=== PATIENT | female | born 1965 | race African-American/Black ===

== ENCOUNTER 2017-01-22 02:47 | Emergency (ER) | payer OTHER ==
[~2017-01-22] VITALS: Ht 175.3 cm; Wt 78.0 kg
[~2017-01-22 02:47] MED LIST: AMBIEN5 MG ORAL; AMBIEN5 MG PO; BACTRIM DS TAB1 EAC1 ORAL; BACTRIM-DS1 EA PO; IBUPROFEN600 MG ORAL
[2017-01-22] MEDS ORDERED: AMLODIPINE BESYL5 MG ORAL (02:58)
[2017-01-22] MEDS ORDERED: Ketorolac 30mg Inj IM ONE (03:15)
[2017-01-22] MEDS ORDERED: IBUPROFEN600 MG ORAL (03:24)
[2017-01-22 03:31] VITALS: BP_SYST 125; BP_SYST 128; BP_DIAS 76; BP_DIAS 78
--- NOTE | 2017-01-22 05:34 | Emergency Room Report ---
History of Present Illness General Chief Complaint: Pain Source: Patient Present Illness HPI 51-year-old female presents to ED complaining of right shoulder pain. States pain started last night around 10 PM. Started while a rest. Denies trauma. Took Tylenol #3 without relief. States pain is throbbing, 10 out of 10, worse with movement. No other aggravating relieving factors. Denies chest pain or shortness of breath. Patient states he takes OxyContin for her back pain. No other aggravating relieving factors. Denies any other associated symptoms Allergies: Coded Allergies: No Known Allergies (Unverified , 08/16/12) Patient History Past Medical History: HTN, asthma Past Surgical History: none Pertinent Family History: none Social History: Denies: alcohol use, drug use, smoking Last Menstrual Period: September 2016 Now: No : 10 Para: 4 Immunizations: UTD Reviewed Nursing Documentation: PMH: Agreed, PSxH: Agreed Nursing Documentation-PMH Past Medical History: No History, Except For Hx Hypertension: Yes Hx Asthma: Yes Review of Systems All Other Systems: negative except mentioned in HPI Physical Exam Vital Signs Date Time Temp Pulse Resp B/P Pulse Ox O2 Delivery O2 Flow Rate FiO2 01/22/17 02:50 98.1 78 18 128/78 97 Room Air Sp02 EP Interpretation: reviewed, normal General Appearance: no apparent distress, alert, GCS 15, non-toxic Head: normocephalic, atraumatic Eyes: bilateral eye PERRL, bilateral eye normal inspection ENT: hearing grossly normal, normal pharynx, no angioedema, normal voice Neck: full range of motion, supple/symm/no masses Respiratory: chest non-tender, lungs clear, normal breath sounds, speaking full sentences Cardiovascular #1: regular rate, rhythm, no edema Cardiovascular #2: 2+ carotid (R), 2+ carotid (L), 2+ radial (R), 2+ radial (L) , 2+ dorsalis pedis (R), 2+ dorsalis pedis (L) Gastrointestinal: normal bowel sounds, non tender, soft, non-distended, no guarding, no rebound Rectal: deferred Genitourinary: normal inspection, no CVA tenderness Musculoskeletal: back normal, gait/station normal, normal range of motion, tender - TTP R shoulder - full ROM Neurologic: alert, oriented x3, responsive, motor strength/tone normal, sensory intact, speech normal Psychiatric: judgement/insight normal, memory normal, mood/affect normal, no suicidal/homicidal ideation Reflexes: 3+ bicep (R), 3+ bicep (L), 3+ tricep (R), 3+ tricep (L), 3+ knee (R) , 3+ knee (L) Skin: normal color, no rash, warm/dry, well hydrated Lymphatic: no adenopathy Procedures Splinting Splinting : Consent: Verbal Pre-Made Type: shoulder sling Pre-Proc Neuro Vasc Exam: normal Post-Proc Neuro Vasc Exam: normal Patient Tolerated: Well Complications: None Medical Decision Making Diagnostic Impression: Primary Impression: Right shoulder strain Qualified Codes: S46.911A - Strain of unspecified muscle, fascia and tendon at shoulder and upper arm level, right arm, initial encounter Additional Impression: Opioid dependence Qualified Codes: F11.20 - Opioid dependence, uncomplicated ER Course Hospital Course 51-year-old female presents to ED complaining of R shoulder pain no trauma Differential diagnoses include: Fracture, dislocation, sprain, contusion, bursitis Clinical course Patient placed on stretcher. After initial history, physical exam reveals an middle-aged female in no acute distress. There is some tenderness to the tricep and deltoid of L shoulder. No bony tenderness. Full range of motion noted. Remainder of exam negative. Clinical findings consistent with tendinitis , shoulder strain. Reassurance given to patient. I reviewed CURES and patient has oxycontin prescriptiosn filled on a monthly basis Patient given Toradol in ED Diagnosis - R shoulder strain, opioid dependence stable and discharged to home with prescription for Motrin. Followup with PMD. Return to ED if symptoms recur or worsen Last Vital Signs Date Time Temp Pulse Resp B/P Pulse Ox O2 Delivery O2 Flow Rate FiO2 01/22/17 03:31 98.1 76 18 125/76 98 Room Air Status: improved Disposition: HOME, SELF-CARE Condition: Stable Scripts Ibuprofen* (MOTRIN*) 600 Mg Tablet 600 MG ORAL Q8H Y for For Pain, #30 TAB 0 Refills Prov: JACOBO COLE M.D. 01/22/17 Patient Instructions: Shoulder Sprain JACOBO COLE M.D. Jan 22, 2017 05:34
== END 2017-01-22 03:32 | disposition home or self-care (01) ==
LOC: EMR 03:10
DX: S46.911A Strain of unspecified muscle, fascia and tendon at shoulder and upper arm level, right arm, initial encounter (principal); F11.20 Opioid dependence, uncomplicated; I10 Essential (primary) hypertension; J45.909 Unspecified asthma, uncomplicated; X58.XXXA Exposure to other specified factors, initial encounter; Y92.9 Unspecified place or not applicable; Y99.8 Other external cause status
CPT/HCPCS: 96372; 99283; J1885

== ENCOUNTER 2018-04-01 10:53 | Emergency (ER) | payer OTHER ==
[~2018-04-01] VITALS: Ht 175.3 cm; Wt 78.0 kg
[~2018-04-01 10:53] MED LIST changes: +ALPRAZOLAM0.25 MG ORAL; +AMLODIPINE BESYL5 MG ORAL
[2018-04-01] MEDS ORDERED: Aspirin Baby 81mg ORAL ONE (11:30)
[2018-04-01 12:00] VITALS: BP 149/68
--- NOTE | 2018-04-01 12:04 | Diagnostic Imaging Report ---
Indication: Chest pain Technique: One view of the chest Comparison: 05/19/2017 Findings: Lungs and pleural spaces are clear. Heart size is upper limits of normal. There is no significant interim change Impression: No acute process
[2018-04-01 12:05] LABS: EOSINOPHILS % (AUTO) 3.7 % (0.0-3.0); HEMATOCRIT 42.2 % (37.0-47.0); HEMOGLOBIN 14.3 G/DL (12.0-16.0); MEAN CORPUSCULAR VOLUME 88 FL (80-99); NEUTROPHILS % (AUTO) 40.3 % (45.0-75.0); PLATELET COUNT 312 K/UL (150-450); RED CELL DISTRIBUTION WIDTH 11.5 % (11.6-14.8); WHITE BLOOD COUNT 4.1 K/UL (4.8-10.8)
[2018-04-01 12:10] LABS: ANION GAP 7 mmol/L (5-15); BLOOD UREA NITROGEN 12 mg/dL (7-18); CALCIUM 9.5 MG/DL (8.5-10.1); CARBON DIOXIDE 32 MMOL/L (21-32); CHLORIDE 105 MMOL/L (98-107); CREATININE 0.8 MG/DL (0.55-1.30); POTASSIUM 3.7 MMOL/L (3.5-5.1); SODIUM 144 MMOL/L (136-145)
[2018-04-01 12:25] LABS: ALANINE AMINOTRANSFERASE 31 U/L (12-78); ALBUMIN 4.2 G/DL (3.4-5.0); ALBUMIN/GLOBULIN RATIO 1.1 (1.0-2.7); ALKALINE PHOSPHATASE 102 U/L (46-116); ASPARTATE AMINO TRANSFERASE 18 U/L (15-37); BILIRUBIN,TOTAL 0.2 MG/DL (0.2-1.0); CKMB 0.7 NG/ML (0.0-3.6); CREATINE KINASE 135 U/L (26-308)
[2018-04-01 14:13] LABS: APPEARANCE,URINE CLEAR; BILIRUBIN, URINE NEGATIVE (NEGATIVE); GLUCOSE, URINE (UA) NEGATIVE (NEGATIVE); KETONES,URINE NEGATIVE (NEGATIVE); LEUKOCYTE ESTERASE ,URINE 1+ (NEGATIVE); NITRITE,URINE NEGATIVE (NEGATIVE); PH,URINE 6.5 (4.5-8.0); PROTEIN,URINE NEGATIVE (NEGATIVE); UROBILINOGEN,URINE NORMAL MG/DL (0.0-1.0)
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
[2018-04-01 14:28] LABS: COLOR,URINE YELLOW
[2018-04-01] MEDS ORDERED: Morphine Sulfate 4mg/ml Inj IVP ONE (14:30)
[2018-04-01 15:08] VITALS: BP 133/76
--- NOTE | 2018-04-02 16:47 | Cardiology Report ---
APPROVED REPORT EKG Measurement Heart [id number] MD [id number] Normal sinus rhythm Normal ECG
== END 2018-04-01 15:09 | disposition short-term general hospital (02) ==
LOC: EMR 12:31
DX: I24.9 Acute ischemic heart disease, unspecified (principal); I10 Essential (primary) hypertension; J45.909 Unspecified asthma, uncomplicated
CPT/HCPCS: 36415; 71045; 80053; 80307; 81003; 82550; 82553; 83690; 83880; 84484; 85025; 93005; 96374; 99284; J2270

== ENCOUNTER 2019-07-15 09:39 | Emergency (ER) | payer SELFPAY ==
[~2019-07-15] VITALS: Ht 177.8 cm; Wt 82.6 kg
[2019-07-15 09:54] VITALS: BP 110/69
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
[2019-07-15] MEDS ORDERED: NAPROXEN250 MG ORAL (10:05)
[2019-07-15] MEDS ORDERED: LIDODERM700 M1 TOPIC (10:05)
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
[2019-07-15] MEDS ORDERED: Naproxen 500mg tab ORAL ONE (10:15)
[2019-07-15] MEDS ORDERED: oxyCODONE HCL/Acetaminophen 5/325mg ORAL ONE (10:15)
[2019-07-15 10:16] VITALS: BP 110/69
--- NOTE | 2019-07-15 10:17 | NUR ---
ED Nurse Note: Pt cleared by health care Provider for discharge. DC instructions/prescription was given and explained to pt and verbalized understanding of teachings. All medical deviecs such as ID band removed. Pt is AAO x4, ambulatory and left with all personal belongings.
== END 2019-07-15 10:16 | disposition home or self-care (01) ==
LOC: EMR 10:00
DX: S30.0XXA Contusion of lower back and pelvis, initial encounter (principal); I10 Essential (primary) hypertension; J45.909 Unspecified asthma, uncomplicated; V43.62XA Car passenger injured in collision with other type car in traffic accident, initial encounter; Y92.410 Unspecified street and highway as the place of occurrence of the external cause
CPT/HCPCS: 99282

== ENCOUNTER 2019-10-13 16:14 | Emergency (ER) | payer OTHER ==
[~2019-10-13] VITALS: Ht 175.3 cm; Wt 83.5 kg
[~2019-10-13 16:14] MED LIST changes: +LIDODERM700 M1 TOPIC; +NAPROXEN250 MG ORAL
[2019-10-13 16:25] VITALS: BP 154/72
[2019-10-13] MEDS ORDERED: Aspirin Baby 81mg ORAL ONE (16:45)
[2019-10-13 16:58] LABS: BASOPHILS % (AUTO) 2.2 % (0.0-2.0); HEMATOCRIT 39.4 % (37.0-47.0); HEMOGLOBIN 13.9 G/DL (12.0-16.0); LYMPHOCYTES % (AUTO) 33.4 % (20.0-45.0); MEAN CORPUSCULAR VOLUME 84 FL (80-99); MONOCYTES % (AUTO) 9.4 % (1.0-10.0); NEUTROPHILS % (AUTO) 52.1 % (45.0-75.0); PLATELET COUNT 331 K/UL (150-450); RED CELL DISTRIBUTION WIDTH 10.6 % (11.6-14.8); WHITE BLOOD COUNT 5.4 K/UL (4.8-10.8)
--- NOTE | 2019-10-13 16:58 | Diagnostic Imaging Report ---
Indication: Chest pain Technique: One view of the chest Comparison: 04/01/2018 Findings: Lungs and pleural spaces are clear. Heart size is normal. Impression: No acute process
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
[2019-10-13] MEDS ORDERED: LORazepam 1mg tab ORAL ONE (17:15)
[2019-10-13 17:17] LABS: ANION GAP 7 mmol/L (5-15); BLOOD UREA NITROGEN 10 mg/dL (7-18); CALCIUM 9.2 MG/DL (8.5-10.1); CARBON DIOXIDE 31 MMOL/L (21-32); CHLORIDE 104 MMOL/L (98-107); CREATININE 0.7 MG/DL (0.55-1.30); POTASSIUM 3.7 MMOL/L (3.5-5.1); SODIUM 142 MMOL/L (136-145)
[2019-10-13 17:27] LABS: ALANINE AMINOTRANSFERASE 42 U/L (12-78); ALBUMIN 4.5 G/DL (3.4-5.0); ALBUMIN/GLOBULIN RATIO 1.2 (1.0-2.7); ALKALINE PHOSPHATASE 83 U/L (46-116); ASPARTATE AMINO TRANSFERASE 26 U/L (15-37); BILIRUBIN,TOTAL 0.5 MG/DL (0.2-1.0)
[2019-10-13 17:46] VITALS: BP 144/74
--- NOTE | 2019-10-14 16:20 | Cardiology Report ---
APPROVED REPORT EKG Measurement Heart [id number] NC [id number] Normal sinus rhythm Normal ECG
== END 2019-10-13 17:50 | disposition home or self-care (01) ==
LOC: EMR 17:49
DX: R07.9 Chest pain, unspecified (principal); I10 Essential (primary) hypertension; F41.9 Anxiety disorder, unspecified
CPT/HCPCS: 36415; 71045; 80053; 83880; 84484; 85025; 93005; 99284

== ENCOUNTER 2020-04-24 20:30 | Emergency (ER) | payer OTHER ==
[~2020-04-24] VITALS: Ht 177.8 cm; Wt 90.7 kg
--- NOTE | 2020-04-24 20:54 | NUR ---
ED Nurse Note: Patient walked in from home d/t bilateral lower leg edema, states it started february 2020 and comes and goes. Patient aao x 4 and ambulatory with steady gait. Patient changed into gown and placed no monitoring and evaluation advisor. VSS.
[2020-04-24 20:55] VITALS: BP 155/73
--- NOTE | 2020-04-24 21:04 | NUR ---
ED Nurse Note: ERMD at bedside.
[2020-04-24] MEDS ORDERED: AMLODIPINE BESY10 MG ORAL (21:06)
--- NOTE | 2020-04-24 21:13 | Emergency Room Report ---
History of Present Illness General Chief Complaint: Edema Source: Patient Present Illness HPI Patient presents with swelling of her ankles that started March 05. She says it began when she noticed it 2 months ago while she was standing in line in [employer]. She had recently had an increase in her blood pressure medicine from 5 to 10 mg of amlodipine. She denies any other changes. No shortness of breath, chest pain or hemoptysis. She denies any fevers or chills. There is no calf pain. Is worse in the evening time and better in the morning. 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 She denies calf pain. Hot flashes. [facility] 2014 No fevers, chills, sore throat, chest pain, palpitations, nausea, vomiting, diarrhea, dysuria, abdominal pain, joint pain, rashes, dizziness, headache. She says she is stressed out at this time. 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 Last Menstrual Period: na Reviewed Nursing Documentation: PMH: Agreed; PSxH: Agreed Nursing Documentation-PMH Hx Hypertension: Yes Hx Asthma: Yes Hx Diabetes: Yes - boarderline DM Review of Systems All Other Systems: negative except mentioned in HPI Physical Exam Vital Signs Date Time Temp Pulse Resp B/P (MAP) Pulse Ox O2 Delivery O2 Flow Rate FiO2 04/24/20 20:36 98.4 89 16 145/76 (99) 96 04/24/20 20:55 Room Air Sp02 EP Interpretation: reviewed, normal General Appearance: well appearing, no apparent distress, GCS 15 Head: normocephalic Eyes: bilateral eye normal inspection, bilateral eye PERRL, bilateral eye EOMI ENT: moist mucus membranes Neck: supple Respiratory: lungs clear, normal breath sounds Cardiovascular #1: regular rate, rhythm, edema - Trace bilateral ankles pulse Cardiovascular #2: 2+ radial (R) Gastrointestinal: normal inspection, normal bowel sounds, non tender, no mass, non-distended, overweight Musculoskeletal: back normal, normal range of motion, no calf tenderness, gait/ station normal Neurologic: alert, oriented x3, grossly normal Psychiatric: anxious Medical Decision Making Diagnostic Impression: Primary Impression: Edema Qualified Codes: R60.0 - Localized edema ER Course Patient presents with bilateral ankle edema. Differential includes DVT, renal failure, congestive heart failure amongst others. Evaluation with EKG, chest x- ray and labs. In no distress and consideration of giving the patient diuretic such as Dyazide or hydrochlorothiazide. Based on her history and exam DVT is extremely unlikely. EKG with left ventricle hypertrophy. Chest x-ray minimal congestion but no congestive heart failure. Labs unremarkable aside from elevated CPK. Discussed results with patient. Discussed salt modification. Also discussed addition of Dyazide to her medication regimen. No medical emergency at this time. Patient stable for outpatient observation and treatment. Laboratory Tests Test 04/24/20 20:47 04/24/20 21:11 Urine Color Pale yellow Urine Appearance Slightly cloudy Urine pH 6 (4.5-8.0) Urine Specific [place] 1.020 (1.005-1.035) Urine Protein Negative (NEGATIVE) Urine Glucose (UA) Negative (NEGATIVE) Urine Ketones Negative (NEGATIVE) Urine Blood 3+ (NEGATIVE) H Urine Nitrite Negative (NEGATIVE) Urine Bilirubin Negative (NEGATIVE) Urine Urobilinogen Normal MG/DL (0.0-1.0) Urine Leukocyte Esterase Negative (NEGATIVE) Urine RBC 10-15 /HPF (0 - 2) H Urine WBC 0-2 /HPF (0 - 2) Urine Squamous Epithelial Cells Moderate /LPF (NONE/OCC) H Urine Bacteria Few /HPF (NONE) White Blood Count 5.8 K/UL (4.8-10.8) Red Blood Count 4.35 M/UL (4.20-5.40) Hemoglobin 12.8 G/DL (12.0-16.0) Hematocrit 40.1 % (37.0-47.0) Mean Corpuscular Volume 92 FL (80-99) Mean Corpuscular Hemoglobin 29.5 PG (27.0-31.0) Mean Corpuscular Hemoglobin Concent 31.9 G/DL (32.0-36.0) L Red Cell Distribution Width 13.4 % (11.6-14.8) Platelet Count 299 K/UL (150-450) Mean Platelet Volume 8.2 FL (6.5-10.1) Neutrophils (%) (Auto) 42.6 % (45.0-75.0) L Lymphocytes (%) (Auto) 40.4 % (20.0-45.0) Monocytes (%) (Auto) 9.3 % (1.0-10.0) Eosinophils (%) (Auto) 5.4 % (0.0-3.0) H Basophils (%) (Auto) 2.3 % (0.0-2.0) H Prothrombin Time 11.0 SEC (9.30-11.50) Prothrombin Time INR 1.0 (0.9-1.1) Activated Partial Thromboplast Time 27 SEC (23-33) Sodium Level 141 MMOL/L (136-145) Potassium Level 3.4 MMOL/L (3.5-5.1) L Chloride Level 103 MMOL/L (98-107) Carbon Dioxide Level 29 MMOL/L (21-32) Anion Gap 9 mmol/L (5-15) Blood Urea Nitrogen 15 mg/dL (7-18) Creatinine 0.9 MG/DL (0.55-1.30) Estimated Glomerular Filtration Rate > 60 mL/min (>60) Glucose Level 91 MG/DL (74-106) Calcium Level 9.3 MG/DL (8.5-10.1) Total Bilirubin 0.2 MG/DL (0.2-1.0) Aspartate Amino Transferase (AST) 19 U/L (15-37) Alanine Aminotransferase (ALT) 31 U/L (12-78) Alkaline Phosphatase 99 U/L (46-116) Total Creatine Kinase 379 U/L (26-308) H Troponin I 0.000 ng/mL (0.000-0.056) Pro-B-Type Natriuretic Peptide 13 pg/mL (0-125) Total Protein 7.9 G/DL (6.4-8.2) Albumin 4.5 G/DL (3.4-5.0) Globulin 3.4 g/dL Albumin/Globulin Ratio 1.3 (1.0-2.7) EKG Diagnostic Results Rate: normal Rhythm: NSR ST Segments: no acute changes Rhythm Strip Diag. Results EP Interpretation: yes Rhythm: NSR, no PVC's, no ectopy Chest X-Ray Diagnostic Results Chest X-Ray Diagnostic Results : Chest X-Ray Ordered: Yes # of Views/Limited/Complete: 1 View Indication: Other EP Interpretation: Yes Interpretation: no effusion, no pneumothorax, other - some congestion Impression: Other Electronically Signed by: Electronically signed by Buster Esquivel MD Last Vital Signs Date Time Temp Pulse Resp B/P (MAP) Pulse Ox O2 Delivery O2 Flow Rate FiO2 04/24/20 23:08 98.2 75 18 135/75 99 Room Air Status: improved Disposition: HOME, SELF-CARE Condition: Improved Scripts Triamterene/Hydrochlorothiazide* (DYAZIDE 37.5-25 MG TAB*) 1 Each Tablet 1 TAB ORAL DAILY, #30 TAB Prov: Buster Esquivel MD 04/24/20 Buster Esquivel MD Apr 24, 2020 21:13
--- NOTE | 2020-04-24 21:20 | NUR ---
ED Nurse Note: Blood drawn and sent to lab
[2020-04-24 21:31] LABS: BASOPHILS % (AUTO) 2.3 % (0.0-2.0); EOSINOPHILS % (AUTO) 5.4 % (0.0-3.0); HEMATOCRIT 40.1 % (37.0-47.0); HEMOGLOBIN 12.8 G/DL (12.0-16.0); LYMPHOCYTES % (AUTO) 40.4 % (20.0-45.0); MEAN CORPUSCULAR VOLUME 92 FL (80-99); MONOCYTES % (AUTO) 9.3 % (1.0-10.0); NEUTROPHILS % (AUTO) 42.6 % (45.0-75.0); PLATELET COUNT 299 K/UL (150-450); RED BLOOD COUNT 4.35 M/UL (4.20-5.40); RED CELL DISTRIBUTION WIDTH 13.4 % (11.6-14.8); WHITE BLOOD COUNT 5.8 K/UL (4.8-10.8)
[2020-04-24 21:37] LABS: APPEARANCE,URINE SLIGHTLY CLOUDY; BILIRUBIN, URINE NEGATIVE (NEGATIVE); COLOR,URINE PALE YELLOW; GLUCOSE, URINE (UA) NEGATIVE (NEGATIVE); KETONES,URINE NEGATIVE (NEGATIVE); LEUKOCYTE ESTERASE ,URINE NEGATIVE (NEGATIVE); NITRITE,URINE NEGATIVE (NEGATIVE); PH,URINE 6 (4.5-8.0); PROTEIN,URINE NEGATIVE (NEGATIVE); UROBILINOGEN,URINE NORMAL MG/DL (0.0-1.0)
[2020-04-24 21:44] LABS: ANION GAP 9 mmol/L (5-15); BLOOD UREA NITROGEN 15 mg/dL (7-18); CALCIUM 9.3 MG/DL (8.5-10.1); CARBON DIOXIDE 29 MMOL/L (21-32); CHLORIDE 103 MMOL/L (98-107); CREATININE 0.9 MG/DL (0.55-1.30); POTASSIUM 3.4 MMOL/L (3.5-5.1); SODIUM 141 MMOL/L (136-145)
[2020-04-24 21:54] LABS: ALANINE AMINOTRANSFERASE 31 U/L (12-78); ALBUMIN 4.5 G/DL (3.4-5.0); ALBUMIN/GLOBULIN RATIO 1.3 (1.0-2.7); ALKALINE PHOSPHATASE 99 U/L (46-116); ASPARTATE AMINO TRANSFERASE 19 U/L (15-37); BILIRUBIN,TOTAL 0.2 MG/DL (0.2-1.0); CREATINE KINASE 379 U/L (26-308)
--- NOTE | 2020-04-24 22:23 | Diagnostic Imaging Report ---
EXAM: XR Chest, 1 View CLINICAL HISTORY: SWELL TECHNIQUE: Frontal view of the chest. COMPARISON: 10/13/2019 FINDINGS: Lungs: Unremarkable. No consolidation. Pleural space: Unremarkable. No pneumothorax. Heart: Unremarkable. No cardiomegaly. Mediastinum: Unremarkable. Bones/joints: Unremarkable. IMPRESSION: No acute findings or substantial change
[2020-04-24] MEDS ORDERED: TRIAMTERENE-HC1 EAC5 ORAL (23:01)
[2020-04-24 23:08] VITALS: BP 135/75
--- NOTE | 2020-04-24 23:08 | NUR ---
ER DISCHARGE NOTE: Patient is cleared to be discharged per ERMD, pt is aox4, on room air, with stable vital signs. pt was given dc and prescription instructions, pt was able to verbalize understanding, pt id band and iv site removed intact without complications. pt given copy of lab results, chest xray and EKG to be given to primary MD. pt is able to ambulate with steady gait. pt took all belongings. pt stable upon discharge.
== END 2020-04-24 23:08 | disposition home or self-care (01) ==
LOC: EMR 21:12
DX: R60.0 Localized edema (principal); I10 Essential (primary) hypertension
CPT/HCPCS: 36415; 71045; 80053; 81003; 82550; 83880; 84484; 85025; 85610; 85730; 93005; 99283

== ENCOUNTER 2020-08-29 08:49 | Emergency (ER) | payer OTHER ==
[~2020-08-29] VITALS: Ht 175.3 cm; Wt 87.1 kg
[~2020-08-29 08:49] MED LIST changes: +AMLODIPINE BESY10 MG ORAL; +TRIAMTERENE-HC1 EAC5 ORAL
--- NOTE | 2020-08-29 09:02 | NUR ---
ED Nurse Note: Pt ambulated to ed c/o pain on sternocleidomatoid area x1 week worsening today. pt denies injury or trauma. pt reports it may be stress related or the positions she sleeps. no bruising or demformities noted.
--- NOTE | 2020-08-29 09:03 | NUR ---
ED Nurse Note: Pt reports pain as a stiffness/soreness like feeling. skin intact.
--- NOTE | 2020-08-29 09:04 | NUR ---
ED Nurse Note: Pt walked into ED for neck and shoudler pain 10/10 for 6 days. Pt denies numbness/tingling. Pt is alert and orientedx4, ambulatory. Pt denies COVID symptoms.
[2020-08-29 09:05] VITALS: BP 142/87
[2020-08-29] MEDS ORDERED: Ketorolac 30mg Inj IM ONE (09:30)
[2020-08-29] MEDS ORDERED: Methocarbamol 750mg tab ORAL ONE (09:30)
[2020-08-29] MEDS ORDERED: ROBAXIN-750750 MG PO (09:35)
[2020-08-29] MEDS ORDERED: LIDODERM700 M1 TOPIC (09:35)
[2020-08-29] MEDS ORDERED: ACETAMINOPHEN-1 EAC1 ORAL (09:35)
[2020-08-29] MEDS ORDERED: IBUPROFEN600 M1 ORAL (09:35)
[2020-08-29 09:48] VITALS: BP 133/81
--- NOTE | 2020-08-29 09:48 | NUR ---
ER DISCHARGE NOTE: Patient is cleared to be discharged per ERMD, pt is aox4, on room air, with stable vital signs. pt was given dc and prescription instructions, pt was able to verbalize understanding, pt id band removed. pt is able to ambulate with steady gait. pt took all belongings.
--- NOTE | 2020-08-29 11:21 | Emergency Room Report ---
History of Present Illness General Chief Complaint: Neck Pain Source: Patient Present Illness HPI 55-year-old female [place] ED complaining of right neck and shoulder pain. Started 1 week ago when she woke up with the symptoms. Initially noted pain in her neck which is then radiated to her shoulder. Feels stiff. 10 out of 10, sharp. Has had similar neck stiffness in the past. Denies chest pain or shortness of breath. Denies fevers or chills. Denies headache. No other aggravating relieving factors. Denies any other associated symptoms Allergies: Coded Allergies: No Known Allergies (Unverified , 07/15/19) COVID-19 Screening Contact w/high risk pt: No Recent Travel to affected area: No Experienced COVID-19 symptoms?: No COVID-19 Testing performed FOOD AND NUTRITION SERVICES ASSISTANT: No Patient History Past Medical History: DM, HTN, asthma Past Surgical History: none Pertinent Family History: none Social History: Denies: smoking, alcohol use, drug use Now: No Immunizations: UTD Reviewed Nursing Documentation: PMH: Agreed; PSxH: Agreed Nursing Documentation-PMH Past Medical History: No History, Except For Hx Hypertension: Yes Hx Asthma: Yes Hx Diabetes: Yes - boarderline DM Review of Systems All Other Systems: negative except mentioned in HPI Physical Exam Vital Signs Date Time Temp Pulse Resp B/P (MAP) Pulse Ox O2 Delivery O2 Flow Rate FiO2 08/29/20 08:58 97.7 62 16 144/85 (104) 96 Room Air Sp02 EP Interpretation: reviewed, normal General Appearance: no apparent distress, alert, GCS 15, non-toxic Head: normocephalic, atraumatic Eyes: bilateral eye normal inspection, bilateral eye PERRL ENT: hearing grossly normal, normal pharynx, no angioedema, normal voice Neck: full range of motion, supple, no meningismus, supple/symm/no masses, tender lateral Respiratory: chest non-tender, lungs clear, normal breath sounds, speaking full sentences Cardiovascular #1: regular rate, rhythm, no edema Cardiovascular #2: 2+ carotid (R), 2+ carotid (L), 2+ radial (R), 2+ radial (L), 2+ dorsalis pedis (R), 2+ dorsalis pedis (L) Gastrointestinal: normal bowel sounds, non tender, soft, non-distended, no guarding, no rebound Rectal: deferred Genitourinary: normal inspection, no CVA tenderness Musculoskeletal: back normal, normal range of motion, gait/station normal, non- tender Neurologic: alert, motor strength/tone normal, oriented x3, sensory intact, responsive, speech normal Psychiatric: judgement/insight normal, memory normal, mood/affect normal, no suicidal/homicidal ideation Reflexes: 3+ bicep (R), 3+ bicep (L), 3+ tricep (R), 3+ tricep (L), 3+ knee (R), 3+ knee (L) Skin: no rash Lymphatic: no adenopathy Medical Decision Making Diagnostic Impression: Primary Impression: Neck pain ER Course Hospital Course 55-year-old female presents with neck pain and shoulder pain Differential diagnoses include: neck strain, shoulder strain, dislocation/fracture Clinical course Patient placed on stretcher. After initial history and physical exam reveals middle-aged male in no acute distress. On exam there is no midline neck tenderness. Full range of motion to the shoulder. There is pain over the R trapezius and SCM. Consistent with a neck strain/shoulder strain I ordered Toradol/Robaxin, Lidoderm in ED. Upon reassessment pain is improved. I discussed findings with patient. Safe for discharge for close outpatient follow-up. States she has a PMD Diagnosis - neck strain Stable and discharged to home with prescription for Robaxin, Lidoderm, motrin. Followup with PMD. Return to ED if symptoms recur or worsen Last Vital Signs Date Time Temp Pulse Resp B/P (MAP) Pulse Ox O2 Delivery O2 Flow Rate FiO2 08/29/20 09:48 97.9 85 19 133/81 100 Room Air Status: improved Disposition: HOME, SELF-CARE Condition: Stable Scripts Acetaminophen With Codeine (T#3) (TYLENOL #3 TAB*) Y Tab 1 TAB ORAL Q8H PRN for For Pain, #12 TAB Prov: Alejandro Flores MD 08/29/20 Lidocaine Patch* (Lidoderm Patch*) 1 Each Adh..patch 1 PATCH TOPIC DAILY, #7 PATCH 0 Refills Patch(es) may remain in place for up to 12 hours in any 24-hour period. Prov: Alejandro Flores MD 08/29/20 Methocarbamol* (ROBAXIN-750*) 750 Mg Tablet 750 MG PO TID, #21 TAB 0 Refills Prov: Alejandro Flores MD 08/29/20 Ibuprofen* (MOTRIN*) 600 Mg Tablet 600 MG ORAL Q8H PRN for FOR PAIN, #30 TAB 0 Refills Prov: Alejandro Flores MD 08/29/20 Referrals: [facility],REFERRING (PCP) Patient Instructions: Cervical Strain and Sprain With [facility]hab[facility] Alejandro Flores MD Aug 29, 2020 11:21
== END 2020-08-29 09:45 | disposition home or self-care (01) ==
LOC: EMR 09:23
DX: M54.2 Cervicalgia (principal); M25.511 Pain in right shoulder; E11.9 Type 2 diabetes mellitus without complications; I10 Essential (primary) hypertension
CPT/HCPCS: 96372; 99283; J1885

== ENCOUNTER 2020-09-11 06:32 | Emergency (ER) | payer OTHER ==
[~2020-09-11] VITALS: Ht 175.3 cm; Wt 86.2 kg
[~2020-09-11 06:32] MED LIST changes: +ACETAMINOPHEN-1 EAC1 ORAL; +IBUPROFEN600 M1 ORAL; +ROBAXIN-750750 MG PO
--- NOTE | 2020-09-11 06:45 | NUR ---
ED Nurse Note: Pt ambulated to ED from home c/o 10/10 L heel pain, pt was seen by her PCP for the same symptoms, xrays taken but unknown results. She has been experiencing the pain since june, feels like sharp shooting tingling pain. Pt is A&OX4, VSS, ERMD at bedside
[2020-09-11] MEDS ORDERED: Ketorolac 60mg Inj IM ONE (07:00)
--- NOTE | 2020-09-11 07:04 | NUR ---
HAND-OFF: Report given to ERIBERTO Dean.
[2020-09-11] MEDS ORDERED: NORCO 5-325 TA1 EAC1 ORAL (07:28)
[2020-09-11] MEDS ORDERED: IBUPROFEN600 M1 ORAL (07:28)
--- NOTE | 2020-09-11 07:33 | Emergency Room Report ---
History of Present Illness General Chief Complaint: Lower Extremity Injury Source: Patient Present Illness HPI Patient presents to the emergency department today complaining of left heel pain. Patient states that she has had pain for months and it progressively has become worse particular is difficult to ambulate. She denies any trauma. States that she saw her primary care physician and received some Tylenol threes but pain continues. Symptoms noted to be moderate to severe. She denies any radiation of pain or swelling. Denies any calf pain. No other modifying factors. No other associated signs and symptoms. No other complaints were noted. Allergies: Coded Allergies: No Known Allergies (Unverified , 07/15/19) COVID-19 Screening Contact w/high risk pt: No Recent Travel to affected area: No Experienced COVID-19 symptoms?: No COVID-19 Testing performed DELIVERY ASSOCIATE: No Patient History Past Medical History: DM, HTN, asthma Past Surgical History: none Pertinent Family History: none Social History: Denies: smoking, alcohol use, drug use Now: No : 9 Para: 4 Reviewed Nursing Documentation: PMH: Agreed; PSxH: Agreed Nursing Documentation-PMH Past Medical History: No History, Except For Hx Hypertension: Yes Hx Asthma: Yes Hx Diabetes: Yes - boarderline DM Review of Systems All Other Systems: negative except mentioned in HPI Physical Exam Vital Signs Date Time Temp Pulse Resp B/P (MAP) Pulse Ox O2 Delivery O2 Flow Rate FiO2 09/11/20 06:32 97.9 68 18 135/70 (91) 97 Room Air Sp02 EP Interpretation: reviewed, normal General Appearance: normal inspection, well appearing, no apparent distress, alert Head: atraumatic Eyes: bilateral eye normal inspection ENT: normal ENT inspection, hearing grossly normal, normal voice Neck: normal inspection, full range of motion, supple, no bony tend Respiratory: normal inspection, lungs clear, normal breath sounds, no respiratory distress, no retraction, no wheezing Cardiovascular #1: regular rate, rhythm, no edema Gastrointestinal: normal inspection, normal bowel sounds, non tender, soft, no guarding, no hernia Genitourinary: no CVA tenderness Musculoskeletal: normal inspection, back normal, normal range of motion, tender - lt foot over the heel Neurologic: alert, responsive, speech normal, normal inspection Psychiatric: normal inspection, judgement/insight normal, mood/affect normal Skin: no rash Medical Decision Making Diagnostic Impression: Primary Impression: Heel spur ER Course Patient presents emergency department today complaining of pain in the left heel. Differential considerations include fractures dislocation versus strain versus heel spur versus plantar fasciitis. Given patient's presentation I felt that x-rays are indicated. Patient's x-ray show evidence of a heel spur no evidence of fracture. Therefore I felt the patient symptoms are likely secondary to the heel spur on the left foot. Recommend anti-inflammatories rest and better foot wear. Patient is advised to follow up with primary doctor in 2- 3 days and return the emergency room for any worsening symptoms and as needed. Other X-Ray Diagnostic Results Other X-Ray Diagnostic Results : X-Ray ordered: Left foot # of Views/Limited Vs Complete: 3 View Indication: Pain EP Interpretation: Yes Interpretation: no dislocation, no soft tissue swelling, no fractures Impression: No acute disease Electronically Signed by: Electronically signed by Ronaldo Pierre MD Last Vital Signs Date Time Temp Pulse Resp B/P (MAP) Pulse Ox O2 Delivery O2 Flow Rate FiO2 09/11/20 06:32 97.9 68 18 135/70 (91) 97 Room Air Status: improved Disposition: HOME, SELF-CARE Condition: Stable Scripts Ibuprofen* (MOTRIN*) 600 Mg Tablet 600 MG ORAL Q6H PRN for FOR PAIN, #20 TAB 0 Refills Prov: Ronaldo Pierre MD 09/11/20 Hydrocodone Bit/Acetaminophen 5-325* (NORCO 5-325 TABLET*) 1 Each Tablet 1 TAB ORAL Q4H PRN for FOR PAIN, #12 TAB 0 Refills Prov: Ronaldo Pierre MD 09/11/20 Patient Instructions: Heel Spur Ronaldo Pierre MD Sep 11, 2020 07:33
[2020-09-11 07:34] VITALS: BP 135/70
--- NOTE | 2020-09-11 07:45 | Diagnostic Imaging Report ---
EXAM: XR Left Foot Complete, 3 or More Views CLINICAL HISTORY: PAIN TECHNIQUE: Frontal, lateral and oblique views of the left foot. COMPARISON: No relevant prior studies available. FINDINGS: Bones/joints: Unremarkable. No acute fracture. No dislocation. Soft tissues: Unremarkable. No radiopaque foreign body. IMPRESSION: Normal left foot x-rays.
== END 2020-09-11 07:30 | disposition home or self-care (01) ==
LOC: EMR 06:51
DX: M77.8 Other enthesopathies, not elsewhere classified (principal); E11.9 Type 2 diabetes mellitus without complications; I10 Essential (primary) hypertension
CPT/HCPCS: 96372; 99283